=== PATIENT | male | born 1990 | race Two or more races ===

== ENCOUNTER 2020-06-23 18:32 | Emergency (ER) | payer BC ==
[~2020-06-23] VITALS: Ht 177.8 cm; Wt 95.3 kg
--- NOTE | 2020-06-23 19:13 | NUR ---
Patient discharged to home in stable condition. Written and verbal after care instructions given. Patient verbalizes understanding of instructions. Stressed follow up or return to ER for worsening s/s. aa/ox4. able to speak in complete sentences in stable condition ambulatory with steady gait all belongings with pt
[2020-06-23 19:14] VITALS: BP 140/90
== END 2020-06-23 19:16 | disposition home or self-care (01) ==
LOC: ER 18:32
DX: J02.9 Acute pharyngitis, unspecified (principal); Z86.19 Personal history of other infectious and parasitic diseases; Z20.828 Contact with and (suspected) exposure to other viral communicable diseases
CPT/HCPCS: A4663